=== PATIENT | male | born 1960 | race Caucasian/White ===

== ENCOUNTER → 2023-04-16 | Outpatient (CLI) | payer BC, MEDICARE ==
--- NOTE | 2023-04-16 11:13 | US ---
EXAMINATION TYPE: Ultrasound MSK complete left shoulder DATE OF EXAM: 04/16/2023 COMPARISON: No radiographic correlation available. CLINICAL INDICATION: Male, 62 years old with history of M25.512 PAIN IN LEFT SHOULDER; TECHNIQUE: Ultrasound left shoulder along with dynamic maneuvers. FINDINGS: There is a split tear of the long head biceps tendon with mild tenosynovial fluid. The tendon remains appropriate situated in the bicipital groove. Heterogeneous hypoechogenicity of the subscapularis tendon. Tendon bulk appears to be maintained. There is significant degenerative joint space narrowing at the AC joint with marginal spurring and ca psular hypertrophy noted. The patient complains of pain while scanning over the joint. There is mild volume loss of the supraspinatus muscle belly but no significant fatty infiltration lizbeth reciated. Preserved echogenicity and volume of the infraspinatus muscle. Possible the bursal sided tear versus full-thickness tear of the anterior to mid supraspinatus tendon . This may measure up to 1.8 cm long and at least 8 mm AP. The infraspinatus tendon appears intact. No effusion within the subacromial/subdeltoid bursa. Attenuating soft tissues causes some exam limitations. No significant effusion in the posterior reces s of the glenohumeral joint. The patient is unable to abduct the arm above the level of the shoulder in any direction. IMPRESSION: 1. Findings suggest a high-grade bursal sided versus full-thickness tear of the anterior to mid supra spinous tendon that may measure up to 1.8 cm long and at least 8 mm AP. Recommend MRI correlation to confirm. There is mild volume loss of the supraspinatus muscle belly but without any significant fatt y infiltration. 2. Split tear of the long head biceps tendon with mild tenosynovitis. 3. Severe AC joint OA. The patient complains of pain while scanning over the joint. Correlate with ra diographic findings. 4. The patient is unable to abduct the arm above the level of the shoulder in any direction. Again, M RI can provide further assessment and evaluate for potential etiologies such as adhesive capsulitis. Please obtain outside radiographs prior to MRI.
== END | disposition home or self-care (01) ==
LOC: RADUSWWP 10:12
DX: M65.812 Other synovitis and tenosynovitis, left shoulder (principal); M19.012 Primary osteoarthritis, left shoulder